=== PATIENT | female | born 1980 | race Caucasian/White ===

== ENCOUNTER 2019-04-17 08:59 | Emergency (ER) | payer OTHER ==
[~2019-04-17] VITALS: Ht 175.3 cm; Wt 136.1 kg
[~2019-04-17 08:59] MED LIST: AVELOX400 MG PO; DOXYCYCLINE; IRON325 PO; LEVOTHYROXIN0.025 MG PG; MACROBID 100 M100 M1 PO; MECLIZINE 25 MG25 M1 PO; TUSS DM PO; [UNRECOGNIZED DRUG - OTHER] IH
[2019-04-17 09:05] VITALS: BP 144/79
[2019-04-17] MEDS ORDERED: AMOXICILLIN 50500 MG PO (09:08)
[2019-04-17] MEDS ORDERED: PREDNISONE 20 M20 MG PO (09:46)
[2019-04-17] MEDS ORDERED: ACYCLOVIR 400400 MG PO (09:46)
== END 2019-04-17 10:00 | disposition home or self-care (01) ==
LOC: ER 08:59
DX: B02.8 Zoster with other complications (principal); M19.90 Unspecified osteoarthritis, unspecified site; F41.9 Anxiety disorder, unspecified; Z90.12 Acquired absence of left breast and nipple; Z85.3 Personal history of malignant neoplasm of breast; Z86.2 Personal history of diseases of the blood and blood-forming organs and certain disorders involving the immune mechanism; Z91.048 Other nonmedicinal substance allergy status; Z88.2 Allergy status to sulfonamides; Z88.1 Allergy status to other antibiotic agents; Z87.891 Personal history of nicotine dependence